=== PATIENT | male | born 1950 | race Caucasian/White ===

== ENCOUNTER 2020-01-01 07:13 | Outpatient (RCR) | payer MEDICARE, BC ==
[2020-01-01] VITALS (10 sets, daily range): BP systolic 101–113; BP diastolic 52–69; PULSE 71–85; TEMP 97.6–98.8
[~2020-01-01] VITALS: Ht 182.9 cm; Wt 85.1 kg
[2020-01-01] MEDS ORDERED: penicillin PO (08:23)
[2020-01-01] MEDS ORDERED: MULTI VITAMINS1 TAB PO (10:50)
[2020-01-01] MEDS ORDERED: FOLIC ACID 11 MG/TA1 PO (10:50)
--- NOTE | 2020-01-01 11:41 | NUR ---
Per pt heis unclear on entire list of home medictions.Pt will attempt to call for rest of medication list.Allergies reviewed,history reviewed.
== END 2020-01-01 13:51 | disposition home or self-care (01) ==
LOC: EUO 07:13
DX: C91.10 Chronic lymphocytic leukemia of B-cell type not having achieved remission (principal); D64.9 Anemia, unspecified
CPT/HCPCS: J1644; J7050; P9040

== ENCOUNTER 2020-03-10 08:33 | Outpatient (RCR) | payer MEDICARE, BC ==
[~2020-03-10] VITALS: Ht 182.9 cm; Wt 83.6 kg
[2020-03-10] VITALS (9 sets, daily range): BP systolic 98–110; BP diastolic 56–68; PULSE 67–80; TEMP 97.4–97.8
[~2020-03-10 08:33] MED LIST: FOLIC ACID 11 MG/TA1 PO; MULTI VITAMINS1 TAB PO; penicillin PO
== END 2020-03-10 14:15 | disposition home or self-care (01) ==
LOC: EUO 08:33
DX: C91.10 Chronic lymphocytic leukemia of B-cell type not having achieved remission (principal); D64.9 Anemia, unspecified; Z95.828 Presence of other vascular implants and grafts
CPT/HCPCS: J1644; J7050; P9016

== ENCOUNTER 2020-03-24 12:49 | Outpatient (RCR) | payer MEDICARE, BC ==
[~2020-03-24] VITALS: Ht 182.9 cm; Wt 84.5 kg
[2020-03-24] VITALS (10 sets, daily range): BP systolic 89–131; BP diastolic 57–66; PULSE 58–75; TEMP 97.5–98.8
[2020-03-24] MEDS ORDERED: BYSTOLIC5 MG PO (18:25)
[2020-03-24] MEDS ORDERED: IMBRUVICA PO (18:26)
[2020-03-24] MEDS ORDERED: NORVASC 10MG10 MG PO (18:26)
[2020-03-24] MEDS ORDERED: ZYLOPRIM 300MG300 MG PO (18:29)
[2020-03-24] MEDS ORDERED: PEN-VEE K250 MG PO (18:30)
[2020-03-24] MEDS ORDERED: DIFLUCAN200 MG PO (18:31)
== END 2020-03-24 18:47 | disposition home or self-care (01) ==
LOC: EUO 12:49
DX: C91.10 Chronic lymphocytic leukemia of B-cell type not having achieved remission (principal)
CPT/HCPCS: J1644; J7050; P9040

== ENCOUNTER 2020-06-01 13:35 | Outpatient (RCR) | payer MEDICARE, BC ==
[~2020-06-01] VITALS: Ht 182.9 cm; Wt 82.6 kg
[2020-06-01] VITALS (10 sets, daily range): BP systolic 108–135; BP diastolic 60–73; PULSE 79–87; TEMP 97.3–98.4
[~2020-06-01 13:35] MED LIST changes: +BYSTOLIC5 MG PO; +DIFLUCAN200 MG PO; +IMBRUVICA PO; +NORVASC 10MG10 MG PO; +PEN-VEE K250 MG PO; +ZYLOPRIM 300MG300 MG PO
[2020-06-01 14:12] LABS: MEAN CELL VOLUME 112 fl (80.0-100.0); MEAN CORPUSCULAR HGB CONC 33 g/dl (33.0-37.0); MEAN PLATELET VOLUME 11.4 fl (7.4-10.4); PLATELET COUNT 87 K/mm3 (130-400); RED BLOOD COUNT 1.85 M/mm3 (4.20-5.60); REDCELL DISTRIBUTION WIDTH-CV 21.2 % (11.5-14.5)
[2020-06-01 14:18] LABS: HEMATOCRIT 20.7 % (42.0-52.0); HEMOGLOBIN 6.9 g/dl (13.5-18.0); MEAN CORPUSCULAR HEMOGLOBIN 37 pg (27.0-31.0)
[2020-06-01 14:24] LABS: ALBUMIN 3.8 gm/dL (3.5-5.0); BILIRUBIN,TOTAL 1.4 mg/dL (0.0-1.0); CALCIUM 8.7 mg/dL (8.4-10.2); CREATININE, serum 1.3 (0.66-1.25); POTASSIUM 3.6 mmol/L (3.4-5.0); TOTAL PROTEIN 6.3 gm/dL (6.4-8.2)
[2020-06-01 15:38] LABS: BAND 3 % (0-10); EOSINOPHIL 5 % (0-4); LYMPHOCYTE 67 % (20.0-51.0); MYELOCYTE 4 % (0-0); NEUTROPHILS 14 % (42.0-75.2)
[2020-06-01 15:43] LABS: ANISOCYTOSIS 3+; PLATELET ESTIMATE DECREASED (NORMAL)
[2020-06-01 15:45] LABS: OVALOCYTES 1+
[2020-06-01 15:46] LABS: SCHISTOCYTES 1+
--- NOTE | 2020-06-01 20:05 | NUR ---
PT TOLERATED TRANSFUSIONS WELL, HE IS AMB TO EXIT WITH STEADY GAIT, ACCOMPANIED BY THIS RN. NO CONCERNS AT TIME OF DISCHARGE.
[2020-06-02 07:51] LABS: PATHOLOGY DIFF REVIEW OK +
== END 2020-06-01 20:07 | disposition home or self-care (01) ==
LOC: EUO 13:35
PROVIDERS: Internal Medicine
DX: C91.10 Chronic lymphocytic leukemia of B-cell type not having achieved remission (principal)
CPT/HCPCS: J1644; J7050; P9040

== ENCOUNTER 2020-06-19 13:04 | Outpatient (RCR) | payer MEDICARE, BC ==
[~2020-06-19] VITALS: Ht 182.9 cm; Wt 84.0 kg
[2020-06-19] VITALS (8 sets, daily range): BP systolic 109–131; BP diastolic 51–59; PULSE 70–88; TEMP 97.8–98.1
[2020-06-19] MEDS ORDERED: ZOFRAN 4MG T4 MG/TAB PO (17:31)
[2020-06-19] MEDS ORDERED: FERROUSAL325 MG PO (17:31)
--- NOTE | 2020-06-19 19:31 | NUR ---
PATIENT TOLERATED 1ST UNIT OF PRBC WITHOUT ANY ISSUES, REPORT GIVEN TO NIGHT NURSE MARTHA DSOUZA, 2ND UNIT OF PRBC STARTED PRIOR TO ME LEAVING FOR THE NIGHT
--- NOTE | 2020-06-19 21:00 | NUR ---
Pt had second unit of blood transfusion without any reactions, VSS. Flushed the port with NS and Heparinized and disconnected the port after completing blood transfusion. Completed discharge procedure and all questions answered. Provided discharge teaching and transported to ED department by MARTHA Naylor.
== END 2020-06-19 21:00 | disposition home or self-care (01) ==
LOC: EUO 13:04 → MEDICAL 13:05 → EUO 21:00
DX: C91.10 Chronic lymphocytic leukemia of B-cell type not having achieved remission (principal)
CPT/HCPCS: OP; J1644; J7050; P9040

== ENCOUNTER 2020-06-22 13:48 | Outpatient (RCR) | payer MEDICARE, BC ==
[2020-06-22] VITALS (10 sets, daily range): BP systolic 104–117; BP diastolic 50–63; PULSE 63–85; TEMP 97.5–98.5
[~2020-06-22 13:48] MED LIST changes: +FERROUSAL325 MG PO; +ZOFRAN 4MG T4 MG/TAB PO
[2020-06-22] MEDS ORDERED: SEPTRA 400 MG-1 TAB PO (16:40)
[2020-06-22] MEDS ORDERED: ZOVIRAX800 MG PO (16:41)
[2020-06-22] MEDS ORDERED: LEVAQUIN 750MG750 M1 PO (16:41)
[2020-06-22] MEDS ORDERED: DIFLUCAN200 MG PO (16:42)
== END 2020-06-22 20:22 ==
LOC: EUO 13:48
DX: C91.10 Chronic lymphocytic leukemia of B-cell type not having achieved remission (principal); D53.9 Nutritional anemia, unspecified; Z95.9 Presence of cardiac and vascular implant and graft, unspecified
CPT/HCPCS: J1644; J7050; P9040

== ENCOUNTER 2021-02-25 16:47 | Outpatient (CLI) | payer MEDICARE, BC ==
[2021-02-25 16:30] VITALS: BP 114/70; PULSE 91; TEMP 98.4
[~2021-02-25 16:47] MED LIST changes: +LEVAQUIN 750MG750 M1 PO; +SEPTRA 400 MG-1 TAB PO; +ZOVIRAX800 MG PO
[2021-06-26] MEDS ORDERED: XANAX .25M0.25 MG/TA PO (10:08)
[2021-06-26] MEDS ORDERED: DAPSONE 100MG100 MG PO (10:09)
[2021-06-26] MEDS ORDERED: ENTOCORT EC3 MG PO (10:09)
[2021-06-26] MEDS ORDERED: INVANZ INJ1 G/VIAL IV (10:09)
[2021-06-26] MEDS ORDERED: LASIX 20MG TABL20 MG PO (10:10)
[2021-06-26] MEDS ORDERED: MUCINEX 60600 MG/TA1 PO (10:10)
[2021-06-26] MEDS ORDERED: IMODIUM 2MG CAPS2 MG PO (10:11)
[2021-06-26] MEDS ORDERED: NOXAFILTAB PO (10:11)
[2021-06-26] MEDS ORDERED: PROTONIX 40MG T40 MG PO (10:11)
[2021-06-26] MEDS ORDERED: K-DUR20 MEQ PO (10:12)
[2021-06-26] MEDS ORDERED: PROMACTA50 MG PO (10:14)
[2021-06-26] MEDS ORDERED: PREDNISONE20 MG PO (10:14)
[2021-06-26] MEDS ORDERED: URSO250 MG PO (10:15)
[2021-06-26] MEDS ORDERED: ALDACTONE 25MG25 M1 PO (10:15)
[2021-06-26] MEDS ORDERED: JAKAFI5 MG PO (10:15)
[2021-06-26] MEDS ORDERED: VALTREX1 GM PO (10:16)
== END 2021-02-25 19:00 | disposition home or self-care (01) ==
LOC: EUO 16:47
DX: C91.10 Chronic lymphocytic leukemia of B-cell type not having achieved remission (principal); A04.71 Enterocolitis due to Clostridium difficile, recurrent; R19.7 Diarrhea, unspecified
CPT/HCPCS: J7030

== ENCOUNTER 2021-06-28 08:30 | Outpatient (RCR) | payer MEDICARE, BC ==
[2021-06-25 10:05] VITALS: BP 124/80; PULSE 102; TEMP 97.6
[2021-06-26 09:07] VITALS: BP 113/79; PULSE 103; TEMP 98.3
[2021-06-27 08:30] VITALS: BP 136/88; PULSE 94; TEMP 97.5
[~2021-06-28] VITALS: Ht 182.9 cm; Wt 86.8 kg
[~2021-06-28 08:30] MED LIST changes: +ALDACTONE 25MG25 M1 PO; +DAPSONE 100MG100 MG PO; +ENTOCORT EC3 MG PO; +IMODIUM 2MG CAPS2 MG PO; +INVANZ INJ1 G/VIAL IV; +JAKAFI5 MG PO; +K-DUR20 MEQ PO; +LASIX 20MG TABL20 MG PO; +MUCINEX 60600 MG/TA1 PO; +NOXAFILTAB PO; +PREDNISONE20 MG PO; +PROMACTA50 MG PO; +PROTONIX 40MG T40 MG PO; +URSO250 MG PO; +VALTREX1 GM PO; +XANAX .25M0.25 MG/TA PO
[2021-06-28 08:39] VITALS: BP 124/85; PULSE 109; TEMP 98.3
--- NOTE | 2021-06-29 10:22 | NUR ---
Pt did show to apt this am.This nurse called pt and spoke with .Per pt has apt at [facility] today and will recieve Invanz there.This nurse notified Ashli Vazquez at ordering office,requested order.
--- NOTE | 2021-07-01 08:51 | NUR ---
Per pt he is at inpatient
== END 2021-07-01 08:51 | disposition home or self-care (01) ==
LOC: EUO 08:30
DX: C91.10 Chronic lymphocytic leukemia of B-cell type not having achieved remission (principal); J20.9 Acute bronchitis, unspecified; L03.113 Cellulitis of right upper limb; Z95.9 Presence of cardiac and vascular implant and graft, unspecified
CPT/HCPCS: J1335